=== PATIENT | male | born 1950 | race Caucasian/White ===

== ENCOUNTER 2017-07-03 15:09 | Inpatient (IN) | payer OTHER ==
[~2017-07-03] VITALS: Ht 170.2 cm; Wt 81.6 kg
[2017-07-03] VITALS (24 sets, daily range): BP systolic 65–137; BP diastolic 41–126
--- NOTE | ~2017-07-03 | HC ---
[facility] [place] [address] CONSULTATION Name: ORTIZ SCHMID Room #: 243-P [facility] IN ..#: [id number] Admission: 07/03/17 Attend Phys: Iftikhar Blair DO Discharge: Date of : 46 Report #: [id number] THIS REPORT FOR: //name// CC: Iftikhar Blair NO PCP REASON FOR CONSULTATION: I was asked to evaluate concerning diarrhea and septic shock. HISTORY OF PRESENT ILLNESS: The patient is a 66-year-old with a 4-day history of profuse diarrhea. No nausea, vomiting, or abdominal pain. No recent antibiotics. No travel. No prior history of colitis. He does have a history of hypertension. Due to generalized weakness, he called the EMS and was transported to the emergency room. He was hypotensive and received over 3 liters of fluid, still required vasopressors. Hospitalized in the intensive care unit. Feels better today. Denies any bloody stools. No history of inflammatory bowel disease, diverticular disease, or bowel ischemia. No history of cancer. PAST MEDICAL HISTORY: Hypertension, coronary artery disease with [place], hepatitis C, and posttraumatic stress disorder. ALLERGIES: CODEINE. MEDICATIONS: As noted on his MAR including Lipitor, Celexa, Singulair, Restoril, aspirin, Flomax, Xanax, Percocet, OxyContin, Nasonex, Remeron, and Zestoretic. FAMILY HISTORY: Noncontributory. SOCIAL HISTORY: Smoker of cigarettes. No significant alcohol intake. REVIEW OF SYSTEMS: Denies any rash, arthritis, headache, cough or sputum production. No dysuria or frequency. PHYSICAL EXAMINATION: VITAL SIGNS: Temperature 100.8, blood pressure 121/70, . GENERAL: He was alert and cooperative. No acute distress. SKIN: Unremarkable. LYMPH: Unremarkable. HEENT: Noted upper and lower dentures. NECK: Supple, no adenopathy. LUNGS: Clear. HEART: Regular, without murmur. ABDOMEN: Soft, tender in the left lower quadrant. No mass or hepatosplenomegaly. RECTAL: Not performed. This was done in the emergency room and noted [facility] [address] [place] [address] CONSULTATION Name: ORTIZ SCHMID Room #: 243-P ADM IN .R.#: [id number] Admission: 07/03/17 Attend Phys: Iftikhar Blair DO Discharge: Date of : 46 Report #: [id number] stool with no masses identified. External genitalia unremarkable with indwelling Arango catheter. Left upper extremity PICC unremarkable. EXTREMITIES: Unremarkable. LABORATORY STUDIES: Sodium 140, potassium 3.8, bicarbonate 20, creatinine 1.4, lactate 0.9, procalcitonin 14. Hemoglobin 10.9, platelet count 244,000, white count 7000, 15% bands, 2% metamyelocytes. Influenza antigen negative. CT scan of the abdomen showed distal colonic thickening, descending and sigmoid colon, aortic calcifications, basilar atelectasis. Ultrasound of the gallbladder negative. Urinalysis unremarkable. Electrocardiogram, normal sinus rhythm. IMPRESSION: A 66-year-old with left-sided colitis, dehydration, acute renal failure, left shift , septic shock requiring vasopressors. Source of colitis, acute community-acquired infectious colitis versus Clostridium difficile colitis versus ischemia. Less likely inflammatory bowel disease. RECOMMENDATION: We will continue broad antibiotic coverage pending culture results. Await blood culture, stool culture, stool for ova and parasite and C. difficile PCR. It would be reasonable to pursue flexible sigmoidoscopy to further assess mucosa. <ELECTRONICALLY SIGNED> By: Giles Harper MD 07/05/17 1040 0855 1037 Giles Harper MD /nt
--- NOTE | ~2017-07-03 | EKG ---
[place] [address] [facility] [place] [address] ELECTROCARDIOGRAM REPORT Name: ORTIZ SCHMID Room #: 243-P ADM IN M.R.#: [id number] Admission: 07/03/17 Attend Phys: Iftikhar Blair DO Discharge: Date of : 46 Report #: [id number] THIS REPORT FOR: //name// [facility] ED Test Date: 2017-07-03 Test Time: 16:40:48 Pat Name: ORTIZ SCHMID Department: Room: 243 Gender: M Form Raiser: RAYNA : 1950 Requested By: Jose Navarro Order Number: [id number] MD: Shakeel Davis Measurements Intervals [place] Rate: 76 P: -20 ID: [id number] QRS: 67 QRSD: 102 T: 86 QT: 396 QTc: 446 Interpretive Statements Sinus rhythm Nonspecific ST segment abnormality Compared to ECG 10/15/2015 07:54:48 No significant change was found Electronically Signed On 07-04-2017 9:02:27 [employer] by Shakeel Davis [email or web address] <ELECTRONICALLY SIGNED> By: Shakeel Davis MD, [facility] 07/04/17901 [facility] 1640 Shakeel Davis MD, [facility] /EPI
--- NOTE | ~2017-07-03 | HC ---
[facility] [place] [address] CONSULTATION Name: ORTIZ SCHMID Room #: 405-P [facility] IN ..#: [id number] Admission: 07/03/17 Attend Phys: Iftikhar Blair DO Discharge: 07/07/17 Date of : 48 Report #: [id number] THIS REPORT FOR: //name// CC: Iftikhar Blair NO PCP DATE OF SERVICE: 07/05/2017 HISTORY OF PRESENT ILLNESS: The patient is a 66-year-old male admitted with severe diarrhea, noted to have sepsis with hypoxemia, hypotension, leukocytosis pneumonitis. Infectious Disease is involved. He has acute renal insufficiency. He is being rehydrated. There is a question of mild distal colitis. Infectious Disease seeing him with noted left-sided colitis, dehydration, acute renal failure, left shift septic shock requiring vasopressors. He has significant generalized weakness and debilitation. We are seeing him in rehabilitation medicine consultation. PAST MEDICAL HISTORY: Includes hypertension, coronary artery disease with [place], hepatitis A, and posttraumatic stress disorder. ALLERGIES: CODEINE. MEDICATIONS: Please see the full medication listing. FAMILY HISTORY: Noncontributory. HABITS: Tobacco abuse. No history of significant alcohol intake. SOCIAL HISTORY: Lives alone in an apartment, one step in. Did not utilize gait aids. Sister's noted a set of his medications. He does have a caregiver for medication helps with homemaking and [employer]. The patient was able to ambulate without gait aids and for his history could dress himself independently. REVIEW OF SYSTEMS: Complains of overall generalized weakness. No complaints currently of chest pain, shortness of breath or abdominal discomfort. No focal extremity pain complaints. PHYSICAL EXAMINATION: GENERAL: A 66-year-old white male seen in the intensive care unit. VITAL SIGNS: Last recorded temperature 97.7, pulse 89, respirations 19, blood pressure 131/90. The patient is alert. HEENT: Appeared to be benign. NEUROLOGIC: Cranial nerves are grossly intact. Facies are symmetric. He has functional range of motion of both upper extremities. Strength is grade 3+ to 4-/5. DTRs are trace to 1. Lower extremities, no focal calf swelling, functional range of motion with strength grade 3+/5. DTRs are trace to 1. He [address] [address] CONSULTATION Name: ORTIZ SCHMID Room #: 405-P [facility] IN [facility].#: [id number] Admission: 07/03/17 Attend Phys: Iftikhar Blair DO Discharge: 07/07/17 Date of : 46 Report #: [id number] is min assist with sit to stand. He can take 3 steps min assist. ASSESSMENT: A 58-year-old white male with the following problems: 1. Medical complexity with generalized debilitation. 2. Left-sided colitis. 3. Septic shock requiring vasopressors. 4. Acute renal failure. 5. Hypotension. 6. Mild protein calorie malnutrition. 7. History of tobacco abuse. 8. History of hepatitis C. 9. History of posttraumatic stress disorder. PLAN: Therapies are working with him as far as functional mobility and ADLs. He may likely be a good rehab candidate for the rehab james as he further medically stabilizes. At this point, we are going to follow along with you regarding his tolerance and proceed from there. Thank you for asking us to assist in this patient's care. <ELECTRONICALLY SIGNED> By: César Vaca MD 07/10/17 1553 0946 1739 César Vaca MD /[facility]
[~2017-07-03 15:09] MED LIST: ALPRAZOLAM ER1 MG PO; ASPIR 8181 M1 PO; CELEXA20 MG PO; FLOMAX0.4 MG PO; HYDROCHLOROTH12.5 M1 PO; LIDODERM TP; LIPITOR10 MG PO; LISINOPRIL10 MG PO; NASONEX17 GM NASAL; OXYCONTIN20 M1 PO; OXYCONTIN60 MG PO; PERCOCET 10-321 EACH PO; REMERON15 MG PO; RESTORIL15 MG PO; SINGULAIR 10 MG10 M1 PO; XANAX1 MG PO; ZESTORETIC 20-1 EAC1 PO
[2017-07-03 15:41] LABS: HEMOGLOBIN 12.2 gm/dL (14.0-18.0); MCH 28.4 pg (26.0-34.0); MCHC 32.9 g/dL (28.0-37.0); MCV 86.3 fL (80.0-100.0); PLATELET COUNT 319 thou/uL (150-400); RBC 4.28 mil/uL (4.50-6.00); RDW 14.1 % (10.5-14.5); WBC 11.8 thou/uL (4.0-11.0)
[2017-07-03 15:52] LABS: CALCIUM 8.6 mg/dL (8.5-10.1); POTASSIUM 4.3 mmol/L (3.5-5.1)
[2017-07-03 15:58] LABS: ALBUMIN 2.9 g/dL (3.4-5.0); TOTAL BILIRUBIN 0.5 mg/dL (<0.1-1.0); TOTAL PROTEIN 6.3 g/dL (6.4-8.2)
[2017-07-03 16:07] LABS: ANISOCYTOSIS 2+; BURR CELLS FEW
[2017-07-03 16:08] LABS: MICROCYTES SLIGHT
[2017-07-03 19:46] LABS: APTT 30.6 Seconds (24.5-32.8); FIBRINOGEN 390.7 mg/dL (210-360); INR 1.1; PROTIME 11.4 Seconds (9.3-11.4)
[2017-07-03 19:56] LABS: HCO3 18.7 mmol/L (22.0-26.0); PCO2 38.1 mmHg (35.0-45.0); PO2 106.8 mmHg (80.0-100.0); sO2 97.5 % (92.0-98.0)
[2017-07-03 19:57] LABS: pH 7.308 (7.360-7.450)
[2017-07-03 20:11] LABS: URINE BILIRUBIN NEGATIVE (Negative); URINE BLOOD TRACE (Negative); URINE CLARITY CLEAR; URINE COLOR YELLOW; URINE GLUCOSE-RANDOM* NEGATIVE (Negative); URINE KETONES TRACE (Negative); URINE LEUKOCYTES-REFLEX NEGATIVE (Negative); URINE NITRITE-REFLEX NEGATIVE (Negative); URINE PROTEIN (DIPSTICK) TRACE (Negative); URINE SPECIFIC GRAVITY 1.025 (1.005-1.035); URINE UROBILINOGEN 0.2 E.U./dl (0.2-1.0)
[2017-07-03 20:20] LABS: AMP/METHAMP Negative (Negative); BARBITURATES Negative (Negative); BENZODIAZEPINES Negative (Negative); COCAINE Negative (Negative); METHADONE Negative (Negative); OPIATES POSITIVE (Negative); PCP Negative (Negative)
[2017-07-03 20:39] LABS: CALCIUM 7.6 mg/dL (8.5-10.1); CREATININE 2.1 mg/dL (0.7-1.3); POTASSIUM 4.3 mmol/L (3.5-5.1)
[2017-07-04] VITALS (96 sets, daily range): BP systolic 69–155; BP diastolic 51–101
[2017-07-04 00:37] LABS: CALCIUM 6.8 mg/dL (8.5-10.1); CREATININE 1.6 mg/dL (0.7-1.3); POTASSIUM 3.6 mmol/L (3.5-5.1)
[2017-07-04 05:30] LABS: HEMATOCRIT 32.4 % (42.0-52.0); HEMOGLOBIN 10.9 gm/dL (14.0-18.0); MCH 29.1 pg (26.0-34.0); MCHC 33.6 g/dL (28.0-37.0); MCV 86.6 fL (80.0-100.0); RBC 3.74 mil/uL (4.50-6.00); RDW 14.5 % (10.5-14.5)
[2017-07-04 05:36] LABS: PLATELET COUNT 244 thou/uL (150-400)
[2017-07-04 05:40] LABS: CALCIUM 7.6 mg/dL (8.5-10.1); CREATININE 1.4 mg/dL (0.7-1.3); POTASSIUM 3.8 mmol/L (3.5-5.1)
[2017-07-04 06:02] LABS: METAMYELOCYTES 2 %
[2017-07-04] MEDS ORDERED: MOBIC7.5 MG PO (08:13)
[2017-07-04] MEDS ORDERED: LISINOPRIL20 MG PO (08:13)
[2017-07-04] MEDS ORDERED: AMITRIPTYLINE H25 M2 PO (08:14)
[2017-07-04] MEDS ORDERED: AMBIEN 5 MG TABL5 M1 PO (08:14)
[2017-07-04] MEDS ORDERED: VIIBRYD40 MG PO (08:15)
[2017-07-04] MEDS ORDERED: NEURONTIN600 MG PO (08:15)
[2017-07-04] MEDS ORDERED: KLONOPIN1 MG PO (08:18)
[2017-07-04] MEDS ORDERED: OXYCONTIN20 M1 PO (08:18)
[2017-07-04 09:03] LABS: ALBUMIN 2.2 g/dL (3.4-5.0); CALCIUM 7.8 mg/dL (8.5-10.1); CREATININE 1.3 mg/dL (0.7-1.3); DIRECT BILIRUBIN 0.3 mg/dL (<0.1-0.3); POTASSIUM 3.8 mmol/L (3.5-5.1); TOTAL BILIRUBIN 0.5 mg/dL (<0.1-1.0); TOTAL PROTEIN 5.1 g/dL (6.4-8.2)
[2017-07-05] VITALS (23 sets, daily range): BP systolic 105–161; BP diastolic 68–108
[2017-07-05 05:10] LABS: HEMATOCRIT 34.1 % (42.0-52.0); HEMOGLOBIN 11.3 gm/dL (14.0-18.0); MCH 28.5 pg (26.0-34.0); MCHC 33.2 g/dL (28.0-37.0); MCV 85.9 fL (80.0-100.0); PLATELET COUNT 260 thou/uL (150-400); RBC 3.97 mil/uL (4.50-6.00); RDW 14.3 % (10.5-14.5)
[2017-07-05 05:24] LABS: ALBUMIN 1.9 g/dL (3.4-5.0); CALCIUM 7.3 mg/dL (8.5-10.1); CREATININE 0.9 mg/dL (0.7-1.3); MAGNESIUM 1.7 mg/dL (1.8-2.4); POTASSIUM 3.6 mmol/L (3.5-5.1); TOTAL BILIRUBIN 0.3 mg/dL (<0.1-1.0); TOTAL PROTEIN 4.7 g/dL (6.4-8.2)
[2017-07-05 08:10] LABS: OVALOCYTES FEW
[2017-07-05 08:11] LABS: BURR CELLS 1+; POIKILOCYTOSIS SLIGHT
[2017-07-06 00:01] VITALS: BP 109/75
[2017-07-06 01:00] VITALS: BP 112/73
[2017-07-06 02:00] VITALS: BP 161/100
[2017-07-06 05:06] LABS: HEMATOCRIT 32.7 % (42.0-52.0); HEMOGLOBIN 10.8 gm/dL (14.0-18.0); MCH 28.5 pg (26.0-34.0); MCHC 33.2 g/dL (28.0-37.0); MCV 85.9 fL (80.0-100.0); PLATELET COUNT 249 thou/uL (150-400); RDW 14.7 % (10.5-14.5); WBC 6.3 thou/uL (4.0-11.0)
[2017-07-06 05:21] LABS: CALCIUM 7.3 mg/dL (8.5-10.1); CREATININE 0.8 mg/dL (0.7-1.3); POTASSIUM 3.3 mmol/L (3.5-5.1)
[2017-07-06 06:04] LABS: MAGNESIUM 1.7 mg/dL (1.8-2.4)
[2017-07-06 06:48] LABS: ABSOLUTE NEUTROPHILS 3.5 thou/uL (1.4-8.2); ANISOCYTOSIS SLIGHT; ATYPICAL LYMPHS 2 %; METAMYELOCYTES 1 %; MYELOCYTES 1 %
[2017-07-06 08:04] VITALS: BP 125/87
[2017-07-06 15:46] VITALS: BP 135/99
[2017-07-06 20:13] VITALS: BP 152/83
[2017-07-07 04:06] VITALS: BP 133/78
[2017-07-07 06:16] LABS: CALCIUM 7.7 mg/dL (8.5-10.1); CREATININE 0.7 mg/dL (0.7-1.3); HEMATOCRIT 32.2 % (42.0-52.0); HEMOGLOBIN 10.9 gm/dL (14.0-18.0); MCH 28.9 pg (26.0-34.0); PLATELET COUNT 225 thou/uL (150-400); POTASSIUM 3.5 mmol/L (3.5-5.1); RBC 3.78 mil/uL (4.50-6.00); RDW 14.5 % (10.5-14.5); WBC 6.5 thou/uL (4.0-11.0)
[2017-07-07 08:27] VITALS: BP 139/55
[2017-07-07] MEDS ORDERED: FLOMAX0.4 MG PO (09:17)
[2017-07-07 09:56] LABS: ABSOLUTE NEUTROPHILS 3.8 thou/uL (1.4-8.2); ATYPICAL LYMPHS 2 %; METAMYELOCYTES 3 %
[2017-07-07 09:59] LABS: ANISOCYTOSIS 1+; HYPOCHROMASIA 1+
[2017-07-07 10:00] LABS: POLYCHROMASIA OCCASIONAL
[2017-07-07] MEDS ORDERED: VANCOCIN 125 M125 M1 PO (16:07)
[2017-07-07 16:15] VITALS: BP 139/55
[2017-07-07 16:26] VITALS: BP 138/103
== END 2017-07-07 17:30 | disposition home health service (06) | DRG 871 ==
LOC: ER 15:09 → ICU 16:51 → EROBS 16:51 → ICU 18:01 → 4N 07-06 07:13
PROVIDERS: Family Medicine; Internal Medicine Pulmonary Disease; Nurse Practitioner; Physician Assistant
PROC: 02HV33Z Insertion of Infusion Device into Superior Vena Cava, Percutaneous Approach (ICD-10-PCS; principal; 2017-07-03)
DX: A41.9 Sepsis, unspecified organism (principal); G93.40 Encephalopathy, unspecified; J18.9 Pneumonia, unspecified organism; R65.21 Severe sepsis with septic shock; N17.9 Acute kidney failure, unspecified; E44.1 Mild protein-calorie malnutrition; A04.72 Enterocolitis due to Clostridium difficile, not specified as recurrent; J98.11 Atelectasis; I10 Essential (primary) hypertension; F43.10 Post-traumatic stress disorder, unspecified; F17.210 Nicotine dependence, cigarettes, uncomplicated; E86.0 Dehydration; I95.9 Hypotension, unspecified; E78.5 Hyperlipidemia, unspecified; I25.10 Atherosclerotic heart disease of native coronary artery without angina pectoris; R09.02 Hypoxemia; G89.29 Other chronic pain; I25.2 Old myocardial infarction; Z86.19 Personal history of other infectious and parasitic diseases; Z88.6 Allergy status to analgesic agent; Z68.28 Body mass index [BMI] 28.0-28.9, adult; Z79.899 Other long term (current) drug therapy
CPT/HCPCS: 10078; 10790; 27000

== ENCOUNTER 2017-08-27 12:12 | Inpatient (IN) | payer OTHER ==
[~2017-08-27] VITALS: Ht 170.2 cm; Wt 71.6 kg
--- NOTE | ~2017-08-27 | S ---
[facility] [place] [address] SURGICAL PATH RPT PROCEDURE Name: MELCHOR SCHMID Room #: 203-P DIS IN M.R.#: [id number] Admission: 08/27/17 Date of : 46 Discharge: 08/30/17 Report #: [id number] Path Case #: [id number] PATHOLOGY REPORT COLLECTION DATE: 08/29/2017 RECEIVED DATE: 08/29/2017 SUBMITTING PHYS: Dr. Juvencio Ferraro OTHER PHYS: Dr. Rivera Bennett SPECIMEN(S) RECEIVED: A.Antrum biopsy r/o HPylori * * * * * * * * * * * * FINAL DIAGNOSIS: "Antrum biopsy, r/o H. pylori", biopsy: - Gastric antral type mucosa with mild reactive changes and minimal chronic inflammation. - Negative H. pylori immunohistochemical stain (block A1); control reactive appropriately. (CLW:pit; 08/30/2017) PATHOLOGIST: Arianne Mullen M.D. REPORT ELECTRONICALLY SIGNED BY: Arianne Mullen M.D. DATE/TIME: 08/30/2017 13:45 * * * * * * * * * * * * GROSS PATHOLOGY: Received in formalin labeled "Melchor Schmid, antrum, rule out H. pylori," are 5 segments of cunningham soft tissue measuring 1.8 x 0.9 x 0.2 cm in aggregate dimensions and ranging from 0.3 to 0.6 cm in maximum dimension. The specimen is submitted entirely in cassette A1. (TSD; 08/29/2017) CLINICAL HISTORY: Pre-OP DX: Nausea, vomiting, epigastric pain Post-OP DX: Duodenal ulcers, gastritis INITIAL CPT CODE(S): A; 58817, 99797 Professional services performed by [facility] at [facility] [address] [place] [address] Technical services performed by [facility] at [address] [place] [address], [facility] [address] [address]. [facility] [address] [place] [address] SURGICAL PATH RPT PROCEDURE Name: MELCHOR SCHMID Room #: 203-P [facility] IN M.R.#: [id number] Admission: 08/27/17 Date of : 46 Discharge: 08/30/17 Report #: [id number] Path Case #: [id number] [facility] [address] [address] PHONE: [phone] DIRECTOR: Paddy Wei M.D. * * * END OF REPORT * * *
--- NOTE | ~2017-08-27 | 2DMMODE ---
[facility] [place] [address] 2 D/M-MODE ECHOCARDIOGRAM Name: ORTIZ SCHMID Room #: 203-P [facility] IN [facility].#: [id number] Admission: 08/27/17 Attend Phys: Rievra Bennett, Discharge: Date of : 46 Date of Service: 08/28/17 1208 Report #: [id number] THIS REPORT FOR: //name// APPROVED REPORT Study performed: 08/28/2017 11:15:58 EXAM: Comprehensive 2D, Doppler, and color-flow Echocardiogram Patient Location: Bedside Room #: 203 Status: routine BSA: 1.84 HR: 82 bpm BP: 167/98 mmHg Other Information Study Quality: Technically Limited Indications Dyspnea Tachycardia Chest Pain Hypertension/HDD Echo Enhancing Agent Indication: Endocardial border delineation Agent(s) / Amount(s) Used: Optison 3 cc Aortic Valve AoV Peak Darrel.: 0.94 m/s AO Peak Gr.: 3.53 mmHg LVOT Max P.64 mmHg LVOT Max V: 0.81 m/s Mitral Valve E/A Ratio: 0.6 MV Decel. Time: 337.42 ms MV E Max Darrel.: 0.47 m/s MV A Darrel.: 0.75 m/s MV PHT: 97.85 ms IVRT: 184.54 ms Pulmonary Valve PV Peak Darrel.: 0.91 m/s PV Peak Gr.: 3.30 mmHg Pulmonary Vein [facility] [address] [place] [address] 2 D/M-MODE ECHOCARDIOGRAM Name: ORTIZ SCHMID Room #: 203-P [facility] IN [facility].#: [id number] Admission: 08/27/17 Attend Phys: Rivera Bennett, Discharge: Date of : 46 Date of Service: 08/28/17 1208 Report #: [id number] P Vein S: 0.48 m/s P Vein A: 0.29 m/s P Vein D: 0.27 m/s P Vein A Dur.: 115.3 msec P Vein S/D Ratio: 1.78 Tricuspid Valve TR Peak Darrel.: 2.38 m/s TR Peak Gr.: 22.74 mmHg PA Pressure: 28.00 mmHg Left Ventricle The left ventricle is normal size. There is normal left ventricular wall thickness. The left ventricular systolic function is normal. The left ventricular ejection fraction is within the normal range. LVEF is 60-65%. Grade I - abnormal relaxation pattern. Right Ventricle The right ventricle is normal size. The right ventricular systolic function is normal. Atria The left atrium size is normal. The right atrium size is normal. Aortic Valve The aortic valve is normal in structure. No aortic regurgitation is present. There is no aortic valvular stenosis. Mitral Valve The mitral valve is normal in structure. There is no mitral valve regurgitation noted. No evidence of mitral valve stenosis. Tricuspid Valve The tricuspid valve is normal in structure. There is trace tricuspid regurgitation. Estimated PAP 28 mmHg. There is no pulmonary hypertension. Pulmonic Valve The pulmonary valve is normal in structure. There is no pulmonic valvular regurgitation. Great Vessels The aortic root is normal in size. IVC is normal in size and collapses >50% with inspiration. Pericardium There is no pericardial effusion. [facility] [address] [place] [address] 2 D/M-MODE ECHOCARDIOGRAM Name: ORTIZ SCHMID Room #: 203-P [facility] IN M.R.#: [id number] Admission: 08/27/17 Attend Phys: Rivera Bennett, Discharge: Date of : 46 Date of Service: 08/28/171207 Report #: [id number] <Conclusion> The left ventricle is normal size. LVEF is 60-65%. The aortic valve is normal in structure. The mitral valve is normal in structure. The tricuspid valve is normal in structure. There is trace tricuspid regurgitation. Estimated PAP 28 mmHg. There is no pulmonary hypertension. The pulmonary valve is normal in structure. There is no pericardial effusion. <ELECTRONICALLY SIGNED> By: Trevin Fletcher MD 08/28/17 1208 07 120 Trevin Fletcher MD /INF
--- NOTE | ~2017-08-27 | P ---
[facility] [place] [address] PROCEDURE REPORT Name: ORTIZ SCHMID Room #: 203-P [facility] IN ..#: [id number] Admission: 08/27/17 Attend Phys: Rivera Bennett MD Discharge: Date of : 48 Report #: [id number] THIS REPORT FOR: //name// CC: FAM unknown Rivera Bennett BRIEF HISTORY: The patient is a 67-year-old male with complaints of epigastric pain, chest pain as well as recent nausea and vomiting. He had been using ibuprofen on a daily basis. He also reports having black stools recently. PREOPERATIVE DIAGNOSES: Nausea, vomiting, chest pain, abdominal pain and melena. POSTOPERATIVE DIAGNOSES: 1. Multiple shallow, nonbleeding duodenal ulcers. 2. Moderate erosive antral gastritis, likely secondary to nonsteroidals. 3. Small hiatus hernia. MEDICATIONS: Deep sedation with propofol per anesthesia. SPECIMEN: Biopsies of gastritis. ESTIMATED BLOOD LOSS: 3 mL. PROCEDURE: EGD with biopsy. FINDINGS: Prior to propofol sedation, procedure of upper endoscopy discussed with the patient as well as potential risks and its complications heard. He indicates he understands and desires to proceed. DESCRIPTION OF PROCEDURE: With the patient in left lateral decubitus position, the Fantomi video endoscope was inserted in the cervical esophagus under direct vision without difficulty. Examination of this organ to its entire length revealed normal esophageal mucosa down the squamocolumnar junction. Squamocolumnar junction was inspected and noted to be unremarkable with no evidence of ulcers, erosions, or esophagitis. Scope was advanced and about a 2-3 cm sliding type hiatus hernia was seen. Mucosa and hernia was unremarkable. Scope was advanced in the stomach, was examined on end view as well as retroflexed views. Examination of distal stomach revealed multiple erosions throughout the antrum. No ulcers were identified. Bleeding lesions were not seen. Upon retroflexion, the hiatus hernia was seen, but no other abnormalities were identified. The pylorus was normal and widely patent. Examination of duodenal bulb revealed multiple superficial ulcers. There was no evidence of bleeding or clot or exposed vessels. All ulcers were shallow. Some were punctate, others were serpiginous. The scope was advanced easily to the third and fourth portion of duodenum, which was inspected and noted to be unremarkable. At that point, scope was withdrawn and careful circumferential [address] [address] PROCEDURE REPORT Name: ORTIZ SCHMID Room #: 203-P [facility] IN .R.#: [id number] Admission: 08/27/17 Attend Phys: Rivera Bennett MD Discharge: Date of : 46 Report #: [id number] views, confirmed the above findings. The patient tolerated the procedure well DISPOSITION: The patient with nausea, vomiting, abdominal pain, chest pain, melanotic stools and also Hemoccult-positive stools. He has ulcerations likely result use of nonsteroidals. I would treat with PPI at this point in time. We will follow up on biopsies for H. pylori. If he does have H. pylori, antibiotic treatment may be beneficial to this patient. In addition, he should avoid use of nonsteroidals. We will follow up biopsies and make further recommendations. By: 1444 1801 Juvencio Ferraro MD /nt
--- NOTE | ~2017-08-27 | EKG ---
[address] [address] ELECTROCARDIOGRAM REPORT Name: ORTIZ SCHMID Room #: 203-P ADM IN M.R.#: [id number] Admission: 08/27/17 Attend Phys: Rivera Bennett MD Discharge: Date of : 46 Report #: [id number] THIS REPORT FOR: //name// [facility] ED Test Date: 2017-08-27 Test Time: 12:18:36 Pat Name: ORTIZ SCHMID Department: Room: 203 Gender: M Bag Bailer: RAYNA : 1950 Requested By: Avelino Srinivasan Order Number: [id number] MD: Shakeel Davis Measurements Intervals [place] Rate: 100 P: 64 SD: 140 QRS: 42 QRSD: 85 T: 71 QT: 336 QTc: 434 Interpretive Statements Sinus tachycardia Atrial premature complexes Compared to ECG 07/03/2017 16:40:48 Atrial premature complex(es) now present Electronically Signed On 08-28-2017 9:40:05 CDT by Shakeel Davis [email or web address] <ELECTRONICALLY SIGNED> By: Shakeel Davis MD, [facility] 08/28/17 0940 17 17 Shakeel Davis MD, [facility] /EPI
[2017-08-27 12:12] VITALS: BP 101/70
[~2017-08-27 12:12] MED LIST changes: +AMBIEN 5 MG TABL5 M1 PO; +AMITRIPTYLINE H25 M2 PO; +KLONOPIN1 MG PO; +LISINOPRIL20 MG PO; +MOBIC7.5 MG PO; +NEURONTIN600 MG PO; +VANCOCIN 125 M125 M1 PO; +VIIBRYD40 MG PO
[2017-08-27 12:38] LABS: ABSOLUTE NEUTROPHILS 10.6 thou/uL (1.4-8.2); BASOPHILS 0.9 % (0.0-2.0); EOSINOPHILS 0.1 % (0.0-3.0); HEMATOCRIT 34.6 % (42.0-52.0); HEMOGLOBIN 11.4 gm/dL (14.0-18.0); LYMPHOCYTES 9.1 % (24.0-44.0); MCH 28.1 pg (26.0-34.0); MCV 85.4 fL (80.0-100.0); MONOCYTES 2.6 % (1.0-8.0); PLATELET COUNT 339 thou/uL (150-400); POLYS 87.3 % (36.0-66.0); RBC 4.05 mil/uL (4.50-6.00); RDW 14.5 % (10.5-14.5); WBC 12.1 thou/uL (4.0-11.0)
[2017-08-27 12:53] LABS: ANION GAP 9 mmol/L (7-16); BUN 49 mg/dL (7-18); CALCIUM 9.2 mg/dL (8.5-10.1); CHLORIDE 102 mmol/L (98-107); CO2 27 mmol/L (21-32); CREATININE 1.5 mg/dL (0.7-1.3); GLUCOSE 119 mg/dL (74-106); POTASSIUM 5.5 mmol/L (3.5-5.1); SODIUM 138 mmol/L (136-145)
[2017-08-27 13:01] LABS: TROPONIN-I < 0.04 ng/mL (<0.06)
[2017-08-27 13:44] LABS: ALBUMIN 3.3 g/dL (3.4-5.0); DIRECT BILIRUBIN 0.1 mg/dL (<0.1-0.3); TOTAL BILIRUBIN 0.3 mg/dL (<0.1-1.0); TOTAL PROTEIN 6.7 g/dL (6.4-8.2)
[2017-08-27 16:22] VITALS: BP 102/69; BP 151/91
[2017-08-27] MEDS ORDERED: MAGOX 400400 MG PO (16:22)
[2017-08-27 19:44] VITALS: BP 150/99
[2017-08-28 04:29] VITALS: BP 151/96
[2017-08-28 06:24] LABS: BASOPHILS 0.9 % (0.0-2.0); EOSINOPHILS 1.6 % (0.0-3.0); HEMATOCRIT 26.5 % (42.0-52.0); MCH 28.9 pg (26.0-34.0); MCHC 34.5 g/dL (28.0-37.0); MCV 83.8 fL (80.0-100.0); MONOCYTES 8.8 % (1.0-8.0); POLYS 47.7 % (36.0-66.0); RBC 3.16 mil/uL (4.50-6.00); RDW 14.9 % (10.5-14.5); WBC 8.4 thou/uL (4.0-11.0)
[2017-08-28 06:40] LABS: CALCIUM 8.7 mg/dL (8.5-10.1); MAGNESIUM 1.9 mg/dL (1.8-2.4)
[2017-08-28 06:41] LABS: POTASSIUM 4.2 mmol/L (3.5-5.1)
[2017-08-28 07:07] LABS: HEMOGLOBIN 9.1 gm/dL (14.0-18.0); PLATELET COUNT 244 thou/uL (150-400)
[2017-08-28 08:00] VITALS: BP 167/98
[2017-08-28 11:06] VITALS: BP 118/81
[2017-08-28 16:11] VITALS: BP 151/91
[2017-08-28 19:56] VITALS: BP 104/65
[2017-08-29 04:59] VITALS: BP 128/83
[2017-08-29 05:56] LABS: URINE BILIRUBIN NEGATIVE (Negative); URINE BLOOD NEGATIVE (Negative); URINE CLARITY CLEAR; URINE COLOR YELLOW; URINE GLUCOSE-RANDOM* NEGATIVE (Negative); URINE KETONES TRACE (Negative); URINE LEUKOCYTES-REFLEX NEGATIVE (Negative); URINE NITRITE-REFLEX NEGATIVE (Negative); URINE PROTEIN (DIPSTICK) NEGATIVE (Negative); URINE SPECIFIC GRAVITY 1.015 (1.005-1.035); URINE UROBILINOGEN 0.2 E.U./dl (0.2-1.0)
[2017-08-29 07:43] LABS: HEMATOCRIT 26.8 % (42.0-52.0); HEMOGLOBIN 9.2 gm/dL (14.0-18.0); MCH 28.9 pg (26.0-34.0); MCHC 34.4 g/dL (28.0-37.0); MCV 84.2 fL (80.0-100.0); RBC 3.18 mil/uL (4.50-6.00); RDW 14.4 % (10.5-14.5); WBC 6.8 thou/uL (4.0-11.0)
[2017-08-29 07:51] LABS: POTASSIUM 4.1 mmol/L (3.5-5.1)
[2017-08-29 08:00] VITALS: BP 143/101
[2017-08-29 12:01] VITALS: BP 127/88
[2017-08-29 16:29] VITALS: BP 182/112
[2017-08-29] MEDS ORDERED: PROTONIX40 M1 PO (17:16)
[2017-08-29 19:02] VITALS: BP 179/111
[2017-08-29 20:30] VITALS: BP 156/90
[2017-08-30 05:41] VITALS: BP 113/69
[2017-08-30 08:20] VITALS: BP 104/68
[2017-08-30 10:30] VITALS: BP 104/68
== END 2017-08-30 12:29 | disposition home or self-care (01) | DRG 377 ==
LOC: ER 12:12 → EROBS 14:33 → 2N 14:33 → ENTRNSPT 08-30 12:15 → EDTRNSPTSTS 08-30 12:18 → 2N 08-30 12:29
PROVIDERS: Emergency Medicine; Internal Medicine; Nurse Practitioner
PROC: 0DB68ZX Excision of Stomach, Via Natural or Artificial Opening Endoscopic, Diagnostic (ICD-10-PCS; principal; 2017-08-29)
DX: K26.4 Chronic or unspecified duodenal ulcer with hemorrhage (principal); E43 Unspecified severe protein-calorie malnutrition; N17.9 Acute kidney failure, unspecified; K29.01 Acute gastritis with bleeding; E86.0 Dehydration; I10 Essential (primary) hypertension; F17.210 Nicotine dependence, cigarettes, uncomplicated; E87.5 Hyperkalemia; K44.9 Diaphragmatic hernia without obstruction or gangrene; G89.29 Other chronic pain; T40.605A Adverse effect of unspecified narcotics, initial encounter; Z60.2 Problems related to living alone; D64.9 Anemia, unspecified; F43.10 Post-traumatic stress disorder, unspecified; I25.10 Atherosclerotic heart disease of native coronary artery without angina pectoris; E78.5 Hyperlipidemia, unspecified; Z79.82 Long term (current) use of aspirin; I25.2 Old myocardial infarction; Z86.19 Personal history of other infectious and parasitic diseases; Z88.6 Allergy status to analgesic agent; Z79.899 Other long term (current) drug therapy; Z68.24 Body mass index [BMI] 24.0-24.9, adult
CPT/HCPCS: 10081; 62110; 62900; 70005

== ENCOUNTER 2017-11-22 13:27 | Emergency (ER) | payer OTHER ==
[~2017-11-22] VITALS: Ht 172.7 cm; Wt 67.6 kg
--- NOTE | ~2017-11-22 | EKG ---
[facility] [place] [address] ELECTROCARDIOGRAM REPORT Name: ORTIZ SCHMID [id number] Admission: 11/22/17 Attend Phys: Discharge: 11/22/17 Date of : 46 Report #: [id number] THIS REPORT FOR: //name// [facility] ED Test Date: 2017-11-22 Test Time: 14:25:02 Pat Name: ORTIZ SCHMID Department: Room: Gender: M Compounder: [facility] : 1950 Requested By: Jessica Keller Order Number: [id number] MD: Shakeel Davis Measurements Intervals [place] Rate: 96 P: 65 RI: 143 QRS: 52 QRSD: 107 T: 63 QT: 360 QTc: 455 Interpretive Statements Sinus tachycardia Multiple premature complexes, vent & supraven Compared to ECG 08/27/2017 12:18:36 No significant change was found Electronically Signed On 11-23-2017 7:33:06 CDT by Shakeel Davis [email or web address] <ELECTRONICALLY SIGNED> By: Shakeel Davis MD, [facility] 11/23/17 0733 1425 142 Shakeel Davis MD, [facility] /EPI
[~2017-11-22 13:27] MED LIST changes: +MAGOX 400400 MG PO; +PROTONIX40 M1 PO
[2017-11-22 14:42] LABS: ABSOLUTE NEUTROPHILS 10.8 thou/uL (1.4-8.2); ANION GAP 8 mmol/L (7-16); BASOPHILS 0.3 % (0.0-2.0); BUN 45 mg/dL (7-18); CALCIUM 8.4 mg/dL (8.5-10.1); CHLORIDE 96 mmol/L (98-107); CO2 26 mmol/L (21-32); CREATININE 1.4 mg/dL (0.7-1.3); EOSINOPHILS 0.2 % (0.0-3.0); GLUCOSE 126 mg/dL (74-106); HEMATOCRIT 36.8 % (42.0-52.0); HEMOGLOBIN 12.2 gm/dL (14.0-18.0); LYMPHOCYTES 9.4 % (24.0-44.0); MCH 25.9 pg (26.0-34.0); MCV 78.4 fL (80.0-100.0); MONOCYTES 11.4 % (1.0-8.0); PLATELET COUNT 300 thou/uL (150-400); POLYS 78.7 % (36.0-66.0); POTASSIUM 4.2 mmol/L (3.5-5.1); RBC 4.69 mil/uL (4.50-6.00); RDW 18.6 % (10.5-14.5); SODIUM 130 mmol/L (136-145); WBC 13.7 thou/uL (4.0-11.0)
[2017-11-22 14:52] LABS: TROPONIN-I <0.06 ng/mL (<0.06)
[2017-11-22 15:08] LABS: ANISOCYTOSIS 1+
[2017-11-22 15:09] LABS: MICROCYTES 2+; OVALOCYTES FEW; POLYCHROMASIA OCCASIONAL
[2017-11-22 15:10] LABS: SCHISTOCYTES RARE
[2017-11-22 17:32] LABS: URINE BILIRUBIN NEGATIVE (Negative); URINE BLOOD TRACE (Negative); URINE CLARITY CLEAR; URINE COLOR YELLOW; URINE GLUCOSE-RANDOM* NEGATIVE (Negative); URINE KETONES NEGATIVE (Negative); URINE LEUKOCYTES NEGATIVE (Negative); URINE NITRITE NEGATIVE (Negative); URINE PROTEIN (DIPSTICK) 1+ (Negative); URINE SPECIFIC GRAVITY 1.025 (1.005-1.035)
[2017-11-22 17:45] LABS: MUCUS >6 Heavy strn/LPF (None Seen); SQUAMOUS 0-3 Few /LPF (0-3); URINE RBC 0-2 Rare /HPF (0-2); URINE WBC 0-5 Rare /HPF (0-5)
[2017-11-22 17:46] LABS: BACTERIA None Seen /HPF (None Seen); COARSE GRANULAR CASTS 0-3 Few /LPF (None Seen); CRYSTALS None Seen /LPF (None Seen)
== END 2017-11-22 17:26 | disposition home or self-care (01) ==
LOC: ER 13:27
PROVIDERS: Emergency Medicine
DX: S09.90XA Unspecified injury of head, initial encounter (principal); I10 Essential (primary) hypertension; I25.2 Old myocardial infarction; F17.210 Nicotine dependence, cigarettes, uncomplicated; Z88.5 Allergy status to narcotic agent; F43.10 Post-traumatic stress disorder, unspecified; W01.0XXA Fall on same level from slipping, tripping and stumbling without subsequent striking against object, initial encounter; Y93.89 Activity, other specified; Y92.89 Other specified places as the place of occurrence of the external cause; Y99.8 Other external cause status